=== PATIENT | male | born 1960 | race Caucasian/White ===

== ENCOUNTER → 2018-04-25 | Outpatient (CLI) | payer BC ==
[2018-04-27 12:07] LABS: CYTOMEGALOVIRUS IGG AB <0.60 U/mL (0.00-0.59); CYTOMEGALOVIRUS IGM AB <30.0 AU/mL (0.0-29.9)
[2018-04-28 18:00] LABS: EPSTEIN BARR EARLY AG IGG AB <9.0 U/mL (0.0-8.9); EPSTEIN BARR VCA IGM AB <36.0 U/mL (0.0-35.9)
== END ==
LOC: OD 12:52
PROVIDERS: ATTEND Surgery
DX: R94.5 Abnormal results of liver function studies (principal); R50.9 Fever, unspecified
CPT/HCPCS: 36415; 86256; 86644; 86663; 86664; 86665; 86757

== ENCOUNTER 2018-05-04 11:55 | Day surgery (SDC) | payer BC ==
[~2018-05-04 11:55] MED LIST: ACETAMINOPHEN 0 MG/0 ML RTUPB IV ONE; BUPIVACAINE HCL 0.25 % INJ/PF (2.5 MG/1 ML) 30 ML VIAL ONE; DEXAMETHASONE SOD PHOSPHATE INJ 4 MG/1 ML VIAL ONE; FENTANYL CITRATE INJ/PF 100 MCG/2 ML AMPUL ONE; GLYCOPYRROLATE 1 MG/5 ML SYRINGE ONE; HYDROMORPHONE HCL INJ/PF 2 MG/ML AMPULE ONE; IBUPROFEN 800 MG in NORMAL SALINE 250 ML IV PRN; MIDAZOLAM 2 MG/2 ML INJ ONE; ONDANSETRON HCL INJ/PF 4 MG/2 ML SDV ONE; PROPOFOL INJ 200 MG/20 ML VIAL IV ONE; ROCURONIUM BROMIDE INJ 50 MG/5 ML VIAL IV ONE; SUCCINYLCHOLINE CHLORIDE INJ 200 MG/10 ML VIAL ONE
[2018-05-04] MEDS ORDERED: CEFOXITIN SODIUM 2 GM in DEXTROSE 5%-WATER 100 ML IV PRN (12:18)
[2018-05-04 12:37] LABS: HEMATOCRIT 40.8 % (37.9-51.0); HEMOGLOBIN 13.9 g/dL (13.5-17.0); MEAN CORPUSCULAR HEMOGLOBIN 30.8 pg (27.0-33.4); MEAN CORPUSCULAR HGB CONC 34.1 g/dL (32.0-36.0); MEAN CORPUSCULAR VOLUME 90 fl (80-97); PLATELET COUNT 216 10^3/uL (150-450); RED BLOOD COUNT 4.52 10^6/uL (4.35-5.55); RED CELL DISTRIBUTION WIDTH 14.6 % (11.5-14.0); WHITE BLOOD COUNT 6.4 10^3/uL (4.0-10.5)
[2018-05-04 12:48] LABS: ALANINE AMINOTRANSFERASE 277 U/L (21-72); ALBUMIN 4.2 g/dL (3.5-5.0); ALKALINE PHOSPHATASE 890 U/L (38-126); ANION GAP 10 (5-19); ASPARTATE AMINO TRANSFERASE 207 U/L (17-59); BILIRUBIN,TOTAL 3.9 mg/dL (0.2-1.3); BLOOD UREA NITROGEN 17 mg/dL (7-20); CALCIUM 9.9 mg/dL (8.4-10.2); CARBON DIOXIDE 28 mmol/L (22-30); CHLORIDE 106 mmol/L (98-107); GLUCOSE 93 mg/dL (75-110); SODIUM 143.8 mmol/L (137-145); TOTAL PROTEIN 7.2 g/dL (6.3-8.2)
[2018-05-04] MEDS ORDERED: MEPERIDINE HCL/PF INJ 25 MG/1 ML DISP.SYRIN IV PRN (12:55)
[2018-05-04] MEDS ORDERED: OXYCODONE-ACETAMINOPHEN 5-325 MG TABLET PO PRN ×3 (12:55→13:47)
[2018-05-04] MEDS ORDERED: PROMETHAZINE HCL INJ 25 MG/1 ML VIAL IV PRN (12:55)
[2018-05-04] MEDS ORDERED: DIPHENHYDRAMINE HCL 50 MG/ML VIAL IV PRN (12:55)
[2018-05-04] MEDS ORDERED: MORPHINE SULFATE 10 MG/ML INJ IV PRN ×2 (12:55→13:47)
[2018-05-04] MEDS ORDERED: FENTANYL CITRATE INJ/PF 100 MCG/2 ML AMPUL IV PRN ×3 (12:55)
[2018-05-04] MEDS ORDERED: GLUCAGON,HUMAN RECOMB 1 MG INJ ONE (13:08)
[2018-05-04] MEDS ORDERED: DEXTROSE 40% GEL 15 GM TUBE PO PRN ×2 (13:47)
[2018-05-04] MEDS ORDERED: GLUCAGON,HUMAN RECOMB 1 MG INJ SUBCUT PRN (13:47)
[2018-05-04] MEDS ORDERED: DEXTROSE 50%-WATER 25 GM/50 ML DISP.SYRIN IV PRN ×2 (13:47)
[2018-05-04] MEDS ORDERED: ONDANSETRON HCL INJ/PF 4 MG/2 ML SDV IV PRN (13:47)
[2018-05-04] MEDS ORDERED: DEXTROSE 5%-LACTATED RINGERS 1,000 ML IV PRN (13:47)
[2018-05-04] MEDS ORDERED: DIPHENHYDRAMINE HCL 50 MG/ML VIAL ONE (14:15)
--- NOTE | 2018-05-04 15:58 | RADIOLOGY REPORT (SQ) ---
EXAM DESCRIPTION: CHOLANGIOGRAM OPERATIVE COMPLETED DATE/TIME: 05/04/2018 3:12 pm REASON FOR STUDY: CHOLANGIOGRAM IN OR K80.20 CALCULUS OF GALLBLADDER W/O CHOLECYSTITIS W/O OBSTRUC COMPARISON: None. FLUOROSCOPY TIME: 2.7 minutes 12 digital C-arm images saved to PACS. TECHNIQUE: Cinegraphic images were obtained from an intraoperative cholangiogram. LIMITATIONS: None. FINDINGS: Contrast injected into the cystic duct stump. Filling defects are present in the distal c ommon duct from choledocholithiasis. Mild dilatation of the distal common duct and common hepatic duct. There is spillage of contrast into the duodenum. IMPRESSION: Distal common duct stones. COMMENT: Quality ID [id number]: Final reports for procedures using fluoroscopy that document radiation exp osure indices, or exposure time and number of fluorographic images (if radiation exposure indices are not available) TECHNICAL DOCUMENTATION: JOB ID: [id number] [email or web address]- All Rights Reserved Reading location - IP/workstation name: [email or web address]
[2018-05-04] MEDS ORDERED: RINGERS SOLUTION,LACTATED 1,000 ML IV PRN (18:32)
[2018-05-04] MEDS ORDERED: CEFOXITIN SODIUM 2 GM in DEXTROSE 5%-WATER 100 ML IV SCH (20:00)
[2018-05-04] MEDS: CEFOXITIN SODIUM 2 GM in DEXTROSE 5%-WATER 100 ML IV SCH (21:23)
[2018-05-05 06:12] LABS: ALANINE AMINOTRANSFERASE 219 U/L (21-72); ALBUMIN 2.9 g/dL (3.5-5.0); ALKALINE PHOSPHATASE 483 U/L (38-126); AMYLASE 37 U/L (30-110); ANION GAP 6 (5-19); ASPARTATE AMINO TRANSFERASE 181 U/L (17-59); BILIRUBIN,DIRECT 2.2 mg/dL (0.0-0.4); BLOOD UREA NITROGEN 16 mg/dL (7-20); CARBON DIOXIDE 26 mmol/L (22-30); CHLORIDE 106 mmol/L (98-107); GLUCOSE 111 mg/dL (75-110); LIPASE 46.2 U/L (23-300); POTASSIUM 4.3 mmol/L (3.6-5.0); SODIUM 138.2 mmol/L (137-145); TOTAL PROTEIN 5.2 g/dL (6.3-8.2)
[2018-05-05 06:21] LABS: ABSOLUTE LYMPHOCYTES (AUTO) 1.5 10^3/uL (0.5-4.7); ABSOLUTE MONOCYTES (AUTO) 0.8 10^3/uL (0.1-1.4); ABSOLUTE NEUT (AUTO) 11.6 10^3/uL (1.7-8.2); BASOPHILS % (AUTO) 0.2 % (0-2); LYMPHOCYTES % (AUTO) 10.7 % (13-45); MEAN CORPUSCULAR VOLUME 91 fl (80-97); MONOCYTES % (AUTO) 5.6 % (3-13); PLATELET COUNT 173 10^3/uL (150-450); RED BLOOD COUNT 2.63 10^6/uL (4.35-5.55); RED CELL DISTRIBUTION WIDTH 14.4 % (11.5-14.0); SEGMENTED NEUTROPHILS % (AUTO) 83.5 % (42-78); TOTAL CELLS COUNTED % (AUTO) 100 %
[2018-05-05 06:38] LABS: WHITE BLOOD COUNT 13.9 10^3/uL (4.0-10.5)
[2018-05-05 06:39] LABS: HEMOGLOBIN 8.2 g/dL (13.5-17.0)
[2018-05-05] MEDS: CEFOXITIN SODIUM 2 GM in DEXTROSE 5%-WATER 100 ML IV SCH (10:57)
--- NOTE | 2018-05-05 15:19 | PDOC PROGRESS REPORT ---
Subjective Progress Note for:: 05/05/18 Subjective:: Post ERCP and IOC which showed CBD stones Reason For Visit: K80.20 CALCULUS OF GALLBLADDER W/O CHOLECYSTITIS W Physical Exam Vital Signs: Temp Pulse Resp BP Pulse Ox 98.3 F 67 16 123/61 94 05/05/18 07:17 05/05/18 07:17 05/05/18 07:17 05/05/18 07:17 05/05/18 07:17 Intake & Output 05/04/18 05/05/18 05/06/18 06:59 06:59 06:59 Intake Total 4935 Output Total 1015 Balance 3920 Weight 88.45 kg 94.5 kg Results Laboratory Results: 05/05/18 06:14 05/05/18 04:22 05/05/18 05/05/18 05/05/18 04:22 04:22 06:14 WBC Cancelled 13.9 H D RBC Cancelled 2.63 L Hgb Cancelled 8.2 L D Hct Cancelled 24.0 L MCV Cancelled 91 MCH Cancelled 31.0 MCHC Cancelled 34.0 RDW Cancelled 14.4 H Plt Count Cancelled 173 Seg Neutrophils % Cancelled 83.5 H Lymphocytes % Cancelled 10.7 L Monocytes % Cancelled 5.6 Eosinophils % Cancelled 0.0 Basophils % Cancelled 0.2 Absolute Neutrophils Cancelled 11.6 H Absolute Lymphocytes Cancelled 1.5 Absolute Monocytes Cancelled 0.8 Absolute Eosinophils Cancelled 0.0 Absolute Basophils Cancelled 0.0 Sodium 138.2 Potassium 4.3 Chloride 106 Carbon Dioxide 26 Anion Gap 6 BUN 16 Creatinine 0.58 Est GFR ( Amer) > 60 Est GFR (Non-Af Amer) > 60 Glucose 111 H Calcium 9.0 Total Bilirubin 3.0 H AST 181 H ALT 219 H Alkaline Phosphatase 483 H Total Protein 5.2 L Albumin 2.9 L Amylase 37 Lipase 46.2 Impressions: Cholangiogram 05/04/18 00:00 IMPRESSION: Distal common duct stones. Assessment & Plan - Plan Summary Plan Summary: Being transfered to [facility] for ERCP then will be back here prior to official discharge.
--- NOTE | 2018-05-06 14:00 | Progress Note ---
Provider Note Provider Note: Pt still has not returned from [facility]. Apparently his ERCP was delayed due to traumas. Hopefully he will return today. May be discharged on post-procedure day 1 from ERCP, as long as he is stable and symptoms are improved.
[2018-05-06] MEDS: CEFOXITIN SODIUM 2 GM in DEXTROSE 5%-WATER 100 ML IV SCH ×3 (21:01→21:14)
[2018-05-07 05:00] LABS: ABSOLUTE BASOPHILS # (AUTO) 0.1 10^3/uL (0.0-0.2); ABSOLUTE LYMPHOCYTES (AUTO) 1.9 10^3/uL (0.5-4.7); ABSOLUTE MONOCYTES (AUTO) 0.9 10^3/uL (0.1-1.4); ABSOLUTE NEUT (AUTO) 8.9 10^3/uL (1.7-8.2); BASOPHILS % (AUTO) 0.5 % (0-2); EOSINOPHILS % (AUTO) 0.1 % (0-6); HEMATOCRIT 22.3 % (37.9-51.0); LYMPHOCYTES % (AUTO) 16.1 % (13-45); MEAN CORPUSCULAR VOLUME 91 fl (80-97); MONOCYTES % (AUTO) 7.9 % (3-13); RED BLOOD COUNT 2.45 10^6/uL (4.35-5.55); RED CELL DISTRIBUTION WIDTH 14.2 % (11.5-14.0); SEGMENTED NEUTROPHILS % (AUTO) 75.4 % (42-78); TOTAL CELLS COUNTED % (AUTO) 100 %; WHITE BLOOD COUNT 11.8 10^3/uL (4.0-10.5)
[2018-05-07 05:17] LABS: ALANINE AMINOTRANSFERASE 183 U/L (21-72); ALBUMIN 3.1 g/dL (3.5-5.0); ALKALINE PHOSPHATASE 500 U/L (38-126); AMYLASE 44 U/L (30-110); ANION GAP 6 (5-19); ASPARTATE AMINO TRANSFERASE 118 U/L (17-59); BILIRUBIN,DIRECT 1.7 mg/dL (0.0-0.4); BILIRUBIN,TOTAL 2.4 mg/dL (0.2-1.3); BLOOD UREA NITROGEN 11 mg/dL (7-20); CALCIUM 9.1 mg/dL (8.4-10.2); CARBON DIOXIDE 30 mmol/L (22-30); CHLORIDE 108 mmol/L (98-107); GLUCOSE 104 mg/dL (75-110); LIPASE 66.3 U/L (23-300); POTASSIUM 4.3 mmol/L (3.6-5.0); TOTAL PROTEIN 5.6 g/dL (6.3-8.2)
[2018-05-07 05:31] LABS: HEMOGLOBIN 7.6 g/dL (13.5-17.0)
[2018-05-07 05:37] LABS: PLATELET COUNT 108 10^3/uL (150-450)
[2018-05-07] MEDS: CEFOXITIN SODIUM 2 GM in DEXTROSE 5%-WATER 100 ML IV SCH (07:36)
--- NOTE | 2018-05-07 08:11 | PDOC PROGRESS REPORT ---
Subjective Progress Note for:: 05/07/18 Reason For Visit: K80.20 CALCULUS OF GALLBLADDER W/O CHOLECYSTITIS W Physical Exam Vital Signs: Temp Pulse Resp BP Pulse Ox 98.3 F 68 16 118/60 97 05/06/18 23:45 05/06/18 23:45 05/06/18 23:45 05/06/18 23:45 05/06/18 23:45 Intake & Output 05/06/18 05/07/18 05/08/18 06:59 06:59 06:59 Intake Total 922 Balance 922 Weight 96.4 kg Results Laboratory Results: 05/07/18 04:26 05/07/18 04:26 05/07/18 05/07/18 05/07/18 04:26 04:26 06:40 WBC 11.8 H RBC 2.45 L Hgb 7.6 L Hct 22.3 L MCV 91 MCH 31.0 MCHC 34.0 RDW 14.2 H Plt Count 108 L Seg Neutrophils % 75.4 Lymphocytes % 16.1 Monocytes % 7.9 Eosinophils % 0.1 Basophils % 0.5 Absolute Neutrophils 8.9 H Absolute Lymphocytes 1.9 Absolute Monocytes 0.9 Absolute Eosinophils 0.0 Absolute Basophils 0.1 Sodium 144.0 Potassium 4.3 Chloride 108 H Carbon Dioxide 30 Anion Gap 6 BUN 11 Creatinine 0.54 Est GFR ( Amer) > 60 Est GFR (Non-Af Amer) > 60 Glucose 104 Calcium 9.1 Total Bilirubin 2.4 H AST 118 H ALT 183 H Alkaline Phosphatase 500 H Total Protein 5.6 L Albumin 3.1 L Amylase 44 Lipase 66.3 Blood Type O POSITIVE Antibody Screen NEGATIVE Impressions: Cholangiogram 05/04/18 00:00 IMPRESSION: Distal common duct stones. Assessment & Plan - Diagnosis (1) Choledocholithiasis Is this a current diagnosis for this admission?: Yes - Plan Summary Plan Summary: There is a 58-year-old male with choledocholithiasis, found at cholecystectomy. The patient was sent to [facility] for ERCP. I have no records to review. At present, I am assuming that his procedure was successful. I will request his records from [facility] to ensure that his common bile duct is clear of all stones and debris. Today, the patient appears well. He has no fevers, chills, nausea, vomiting, or abdominal pain. I will advance his diet. His bilirubin is trending downward. His amylase and lipase are normal. The patient is anemic today, however he is completely asymptomatic. 2 units of packed cells were ordered, however I have discontinued these. I have discussed this at length with the patient, and he is in agreement with the treatment plan. I have encouraged the patient to mobilize, and perform aggressive pulmonary toilet. If the patient does well, he may be able to be discharged later today.
--- NOTE | 2018-05-07 08:54 | Operative Report ---
Nonrecallable Operative Report DATE OF SURGERY: 05/04/18 PREOPERATIVE DIAGNOSIS: Symptomatic cholelithiasis, elevation of LFTs POSTOPERATIVE DIAGNOSIS: 1. 2 large, nonobstructing stones in the distal common bile duct. 2. Chronic cholecystitis OPERATION: Laparoscopic cholecystectomy with intraoperative cholangiogram. SURGEON: DARCIE KENDRICK TELECOMMUNICATIONS SWITCH TECHNICIAN: KAREN GRAVES ANESTHESIA: GA TISSUE REMOVED OR ALTERED: Gallbladder COMPLICATIONS: 2 large, nonobstructing, bile duct stones that were unable to be removed via balloon sweep. ESTIMATED BLOOD LOSS: Minimal PROCEDURE: Drains/implants: None. Procedure in detail: After informed consent was obtained, the patient was brought into the operating room and laid in the supine position. The area of the abdomen was prepped and draped in a normal sterile fashion. A supraumbilical incision was created with a 15 blade scalpel. Dissection was carried through the subcutaneous tissue using sharp and blunt dissection. The cicatrix was identified, grasped with a Keturah clamp, and retracted upwards. The linea alba fascia was incised sharply, the abdomen was entered sharply. The balloon trocar was inserted, and pneumoperitoneum was achieved. A 5 mm port was placed in the subxiphoid position under direct laparoscopic visualization. 2 more 5 mm ports were placed in the right upper quadrant in similar fashion. Atraumatic graspers were placed through the 5 mm ports. The gallbladder was retracted cephalad and laterally. The gallbladder was tense and distended, however it was easily manipulated. There was the appearance of cholecystitis. Dissection was begun at the triangle of Calot. The cystic duct and cystic artery were fully visualized and skeletonized, seeing the liver through the triangle. Once the critical view of safety was obtained, the gallbladder was grasped at the infundibulum, and a small incision was made within the infundibulum, just above the cystic duct. The Arrow catheter was then inserted into the cystic duct, and cholangiograms were obtained. Dye was injected into the ductal system. The right and left hepatic radicals, main hepatic ducts, and common bile duct were easily identified. There was no obvious leakage or extravasation of contrast. In the distal common bile duct there were 2 very large gallstones. They did not appear to be obstructing, as contrast flowed into the duodenum. A balloon sweep was then performed under fluoroscopy in an attempt to remove the stones out of the cystic duct. They would not come out of the cystic duct. An attempt was then made to flush the stones through the ampulla. This was also unsuccessful. Once this was recognized, no further attempts were made to remove the stones. The patient would require an ERCP after the procedure. Clips were placed on the cystic duct and cystic artery. The cystic duct and cystic artery were then cut with laparoscopic scissors. The gallbladder was removed from the liver using Bovie electrocautery. The gallbladder was then placed into an Endo Catch bag and pulled out through the umbilicus. The camera was reinserted, the abdomen was copiously irrigated and suctioned until the effluent was clear. The hilum was inspected. It was found to be free of any leakage of blood or bile. The 5 mm trochars were then removed under direct laparoscopic visualization. The supraumbilical trocar was removed, and pneumoperitoneum was relieved. The supraumbilical fascia was closed using 0 Vicryl suture in [id number] fashion. The overlying skin was closed using 4-0 Vicryl Rapide suture in subcuticular fashion. Dressings were placed, and the procedure was concluded. All sponge, instrument, and needle counts were correct x2. Condition: Stable. Karen Graves PA-C was scrubbed and present the entirety of the procedure. She assisted with all portions of the procedure including placement of the trochars, manipulation of the gallbladder, obtaining the cholangiogram, closure of the fascia, and closure of the skin.
--- NOTE | 2018-05-07 14:35 | Physician Advisory Note ---
Physician Advisor ProgressNote .: Pursuant to the plan for [facility]ign[facility], I have reviewed the medical record for this patient. Physician Advisor Statement: Please consider documenting, if you agree: 1. "suspect chronic anemia due to nutritional Fe/B12/folate/____ deficiency" vs. "suspect chronic blood loss anemia due to " vs. "suspect acute blood loss anemia due to " 2. If pt was not felt to be safe for d/c later today, please document clinical issues that prevent this from being safe [concerns about developing thrombocytopenia? concerns about continued leukocytosis? acute ? ...] & may be appropriate for change to Inpatient status. Thanks! CK Status review: Pt in for outpt ritika. Found to have elevated transaminases/bili, nl WBC 6.4 & nl Hgb 13.9 (no prior levels in [facility]). Found to have obstructing choledocholithiasis. ERCP was recommended, & was arranged to be done at [facility]. As of this point, Obs status would be appropriate, due to pt having "complication" of obstructive cholelithiasis found intra-op, needing followup labs/close monitoring for further acute worsening in obstruction vs gradual improvement. Day 2, WBC was up to 13.9, Hgb down to 8.2. LFTs improved but still high. Went to [facility] for ERCP, was there longer than expected due to delays there due to trauma cases. Needing to be monitored overnight from ERCP. Day 3, still w/leukocytosis, but not as bad as day 2. Hgb down to 7.6 but without acute sx. Plts down to 108 acutely. LFTs still elevated, but trending down still. Attg has documented expectation for d/c later today as of this AM.
--- NOTE | 2018-05-07 16:38 | PDOC DISCHARGE SUMMARY ---
General - Admit/Disc Date/PCP Admission Date/Primary Care Provider: BARNEY QUINONEZ MD Discharge Date: 05/07/18 - Discharge Diagnosis (1) Choledocholithiasis Is this a current diagnosis for this admission?: Yes - Additional Information Discharge Diet: As Tolerated Discharge Activity: No Lifting Over 10 Pounds Home Medications: Aspirin [Aspirin 81 mg Chewable Tablet] 81 mg PO DAILY 05/03/18 Atorvastatin Calcium [Lipitor 80 mg Tablet] 80 mg PO DAILY 05/03/18 Doxycycline Hyclate 100 mg PO BID 05/03/18 Losartan Potassium [Cozaar 25 mg Tablet] 25 mg PO DAILY 05/03/18 Ubidecarenone [Co Q-10] 100 mg PO DAILY 05/03/18 History of Present Illness History of Present Illness: HILLARY PERDUE is a 58 year old male brought to the hospital for outpatient cholecystectomy for chronic cholecystitis. The patient was found to have elevated liver function test in the office, therefore a cholangiogram was shot during the procedure. The patient was found to have 2 large common bile duct stones. These were unable to be extracted during the time of surgery. Therefore the patient was admitted to the hospital and ERCP was requested. Hospital Course Hospital Course: Patient was admitted to the hospital, however GI services were not available. Secondary to this, consultation was made with the rail grinder at [facility] in [place], [place]. They were able to perform ERCP. The patient was transferred to [facility] on postoperative day #1. The patient was held in [place] for approximately 36 hours awaiting ERCP. Finally, ERCP was performed and the patient was transferred back to our facility. The patient remained stable throughout his hospital stay. The patient was found to have anemia, likely related to surgery, blood draws, and fluid shifts. At this time, the patient is completely asymptomatic. He ambulates without difficulty. He is eating without difficulty. His amylase and lipase are normal. His LFTs are trending downward. I discussed with him the risks and benefits of discharge. The patient is requesting discharge at this time. I will discharge him home. I have encouraged him to contact me immediately with any questions, concerns, or new symptoms. Physical Exam Vital Signs: Temp Pulse Resp BP Pulse Ox 98.2 F 77 16 115/65 100 05/07/18 11:32 05/07/18 11:32 05/07/18 11:32 05/07/18 11:32 05/07/18 11:32 Intake & Output 05/06/18 05/07/18 05/08/18 06:59 06:59 06:59 Intake Total 922 100 Balance 922 100 Weight 96.4 kg Results Laboratory Results: 05/07/18 04:26 05/07/18 04:26 05/07/18 05/07/18 05/07/18 04:26 04:26 06:40 WBC 11.8 H RBC 2.45 L Hgb 7.6 L Hct 22.3 L MCV 91 MCH 31.0 MCHC 34.0 RDW 14.2 H Plt Count 108 L Seg Neutrophils % 75.4 Lymphocytes % 16.1 Monocytes % 7.9 Eosinophils % 0.1 Basophils % 0.5 Absolute Neutrophils 8.9 H Absolute Lymphocytes 1.9 Absolute Monocytes 0.9 Absolute Eosinophils 0.0 Absolute Basophils 0.1 Sodium 144.0 Potassium 4.3 Chloride 108 H Carbon Dioxide 30 Anion Gap 6 BUN 11 Creatinine 0.54 Est GFR ( Amer) > 60 Est GFR (Non-Af Amer) > 60 Glucose 104 Calcium 9.1 Total Bilirubin 2.4 H AST 118 H ALT 183 H Alkaline Phosphatase 500 H Total Protein 5.6 L Albumin 3.1 L Amylase 44 Lipase 66.3 Blood Type O POSITIVE Antibody Screen NEGATIVE Impressions: Cholangiogram 05/04/18 00:00 IMPRESSION: Distal common duct stones. Qualifiers - * PATIENT BEING DISCHARGED WITH ANY OF THE FOLLOWING DIAGNOSIS: No Plan Discharge Plan: Discharge home. Diet as tolerated. Activity: No lifting greater than 10 pounds x 2 weeks after surgery. Okay to shower. No tub baths or swimming pools times 2 weeks. Tylenol/Motrin for pain. Follow-up with me in 7-10 days at [place] [facility]. Time Spent: Less than 30 Minutes
[2018-05-07 17:06] VITALS: BP 106/53
== END 2018-05-07 17:00 | disposition home or self-care (01) ==
LOC: OROUT 11:55 → 4N 20:20 → OROUT 05-07 17:00
PROVIDERS: ATTEND Surgery
DX: K80.64 Calculus of gallbladder and bile duct with chronic cholecystitis without obstruction (principal); Z79.82 Long term (current) use of aspirin; Z79.899 Other long term (current) drug therapy; J44.9 Chronic obstructive pulmonary disease, unspecified; G47.33 Obstructive sleep apnea (adult) (pediatric); I10 Essential (primary) hypertension; Z01.818 Encounter for other preprocedural examination; E78.00 Pure hypercholesterolemia, unspecified; Z95.1 Presence of aortocoronary bypass graft; R50.9 Fever, unspecified
CPT/HCPCS: 86900; 86901; 36415; 86850; 82150; 83690; 85025; 85027; 80053; 86920; 88304 ×2; 74300; 47563; G0378 ×4; G0379; J2250; J3490 ×2; J1100; J1200; J0694 ×3; J1610; J1170; J0330; J2405; J7050; J2704; J1741; 790; J0131; J3010